=== PATIENT | female | born 1965 | race Caucasian/White ===

== ENCOUNTER 2022-05-01 06:47 | Day surgery (SDC) | payer BC, MEDICAID ==
[2022-05-01] MEDS ORDERED: Midazolam 1 MG/ML 2 ML SDV ONE (07:06)
[2022-05-01] MEDS ORDERED: Propofol 200 MG/20 ML SDV ONE ×2 (07:06→08:29)
[2022-05-01] MEDS ORDERED: fentaNYL 50 MCG/ML SDV ONE (07:07)
[2022-05-01] MEDS ORDERED: Lactated Ringers 1,000 ML IV SCH (07:30)
[2022-05-01 09:31] VITALS: BP 142/77; PULSE 66
== END 2022-05-01 09:47 | disposition home or self-care (01) ==
LOC: JP.SDS 06:47
PROVIDERS: ATTEND Student in an Organized Health Care Education/Training Program
DX: Z12.11 Encounter for screening for malignant neoplasm of colon (principal); Z80.0 Family history of malignant neoplasm of digestive organs; Z88.1 Allergy status to other antibiotic agents
CPT/HCPCS: 45378; J2250; J2704; J3010; J7120